=== PATIENT | male | born 1945 | race African-American/Black ===

== ENCOUNTER 2018-10-31 10:45 | Inpatient (IN) | payer BC, MEDICARE ==
[~2018-10-31] VITALS: Ht 180.3 cm; Wt 77.1 kg
[2018-10-31] MEDS ORDERED: SODIUM CHLORIDE 0.9% 1,000 ML IV ONE (11:49)
[2018-10-31] MEDS ORDERED: ONDANSETRON HCL 4MG/2ML INJ IV STA (11:49)
[2018-10-31] MEDS ORDERED: MORPHINE SULFATE 4 MG/ML CPJ (NOT FOR IM USE) IV STA (11:49)
[2018-10-31 12:52] LABS: BASOPHILS % 0.4 % (0.0-2.0); EOSINOPHILS % 0.2 % (0.0-5.0); HEMATOCRIT. 46.3 % (42.0-52.0); HEMOGLOBIN. 15.8 g/dL (14.0-18.0); LYMPHOCYTES % 11.5 % (20.0-50.0); MEAN CORPUSCULAR HEMOGLOBIN 33.4 pg (28.0-32.0); MEAN CORPUSCULAR VOLUME 98.2 fL (80.0-94.0); MEAN PLATELET VOLUME 7.6 fl (7.4-10.4); MONOCYTES % 9.1 % (2.0-8.0); NEUTROPHILS % 78.8 % (40.0-76.0); PLATELET 317 x1000/uL (130-400); RED BLOOD CELL COUNT 4.72 mill/uL (4.7-6.1); RED CELL DISTRIBUTION WIDTH 13.8 % (11.6-14.6)
[2018-10-31 13:00] LABS: PROTHROMBIN TIME 10.4 sec (9.6-11.0)
[2018-10-31 13:01] LABS: CHLORIDE 94 mEq/L (98-107)
[2018-10-31 14:32] LABS: CLARITY URINE CLEAR (CLEAR); COLOR URINE YELLOW (YELLOW); KETONES URINE NEGATIVE (NEGATIVE); LEUKOCYTE ESTERASE URINE NEGATIVE (NEGATIVE); NITRITE URINE NEGATIVE (NEGATIVE); OCCULT BLOOD URINE NEGATIVE (NEGATIVE); PROTEIN URINE TRACE (NEGATIVE); UROBILINOGEN URINE 0.2 E.U./dL (0.2-1.0)
[2018-10-31] MEDS ORDERED: ASPIRIN 325MG EC TABLET PO NR (15:00)
[2018-10-31] MEDS ORDERED: IOHEXOL-300 100 ML BOTTLE ONE (16:08)
[2018-10-31 17:16] VITALS: BP 154/91
[2018-10-31 17:35] VITALS: BP 154/91
[2018-10-31] MEDS ORDERED: LISI-604 PO (17:51)
[2018-10-31] MEDS ORDERED: MYCO500T PO (17:51)
[2018-10-31] MEDS ORDERED: FESO8TAB PO (17:51)
[2018-10-31] MEDS ORDERED: MEMA10TA2 PO (17:51)
[2018-10-31] MEDS ORDERED: UBID100T7 PO (17:51)
[2018-10-31] MEDS ORDERED: HYDR25TA PO (17:51)
[2018-10-31] MEDS ORDERED: MODA100T28 PO (17:51)
[2018-10-31] MEDS ORDERED: POTA-79 PO (17:51)
[2018-10-31] MEDS ORDERED: ALFU10TA9 PO (17:51)
[2018-10-31] MEDS ORDERED: AMLO5TAB88 PO (17:51)
[2018-10-31] MEDS ORDERED: METO-385 PO (17:51)
[2018-10-31] MEDS ORDERED: MAGNESIUM/ALUMINUM HYDROXIDE/SIMETHICONE 30ML UDC PO PRN (18:15)
[2018-10-31] MEDS ORDERED: DIPHENHYDRAMINE 50MG/ML VIAL IV PRN (18:15)
[2018-10-31] MEDS ORDERED: IPRATROPIUM/ALBUTEROL 0.5-3(2.5)MG/3ML NEB INH PRN (18:15)
[2018-10-31] MEDS ORDERED: HYDROCODONE/ACETAMINOPHEN 5/325MG TABLET PO PRN (18:15)
[2018-10-31] MEDS ORDERED: ACETAMINOPHEN 650MG/20.3ML UDC GT PRN (18:15)
[2018-10-31] MEDS ORDERED: CLONIDINE 0.1MG TABLET PO PRN (18:15)
[2018-10-31] MEDS ORDERED: GUAIFENESIN 200MG/10ML SUGAR FREE UDC PO PRN (18:15)
[2018-10-31] MEDS ORDERED: ACETAMINOPHEN 325MG TABLET PO PRN (18:15)
[2018-10-31] MEDS ORDERED: ACETAMINOPHEN 650MG SUPP PR PRN (18:15)
[2018-10-31] MEDS ORDERED: NA PHOS,M-B/NA PHOS,DI-BA ENEMA 118ML PR PRN (18:15)
[2018-10-31] MEDS ORDERED: ENOXAPARIN 40MG/0.4ML SYR SUBCUT SCH (18:30)
[2018-10-31 20:00] VITALS: BP 130/68
[2018-10-31] MEDS: MYCOPHENOLATE MOFETIL 500MG TABLET PO SCH (22:49)
[2018-10-31] MEDS: POTASSIUM CHLORIDE 20MEQ TABLET SR PO SCH (22:50)
[2018-10-31] MEDS: SODIUM CHLORIDE 0.9% INJ 3ML FLUSH IVF SCH (22:59)
[2018-11-01] VITALS: BP 129/88
[2018-11-01 01:16] LABS: CREATINE KINASE 181 IU/L (39-308)
[2018-11-01 01:17] LABS: CREATINE KINASE MB FRACTION 2.7 ng/mL (0.5-3.6)
[2018-11-01] MEDS ORDERED: ONDANSETRON HCL 4MG/2ML INJ IV PRN (02:15)
[2018-11-01] MEDS: DOCUSATE SODIUM 100MG CAPSULE PO PRN ×3 (03:15→11:06)
[2018-11-01 04:00] VITALS: BP 118/75
[2018-11-01] MEDS: SODIUM CHLORIDE 0.9% INJ 3ML FLUSH IVF SCH (06:13)
[2018-11-01 06:34] LABS: CHLORIDE 98 mEq/L (98-107)
[2018-11-01 06:38] LABS: BASOPHILS % 0.5 % (0.0-2.0); EOSINOPHILS % 0.2 % (0.0-5.0); HEMATOCRIT. 44.5 % (42.0-52.0); HEMOGLOBIN. 15.1 g/dL (14.0-18.0); LYMPHOCYTES % 17.9 % (20.0-50.0); MEAN CORPUSCULAR HEMOGLOBIN 33.5 pg (28.0-32.0); MEAN CORPUSCULAR VOLUME 98.6 fL (80.0-94.0); MEAN PLATELET VOLUME 7.7 fl (7.4-10.4); MONOCYTES % 11.1 % (2.0-8.0); NEUTROPHILS % 70.3 % (40.0-76.0); PLATELET 302 x1000/uL (130-400); RED BLOOD CELL COUNT 4.51 mill/uL (4.7-6.1); RED CELL DISTRIBUTION WIDTH 13.4 % (11.6-14.6)
[2018-11-01 06:47] LABS: HDL CHOLESTEROL 64 mg/dL (40-59)
[2018-11-01 06:48] LABS: CREATINE KINASE 165 IU/L (39-308)
[2018-11-01 06:51] LABS: LDL CHOLESTEROL 128 mg/dL (5-100)
[2018-11-01 06:55] LABS: CREATINE KINASE MB FRACTION 2.2 ng/mL (0.5-3.6)
[2018-11-01 08:00] VITALS: BP 109/71
[2018-11-01 08:35] LABS: *AMPHETAMINES SCREEN URINE NEGATIVE (NEGATIVE); *BARBITURATES SCREEN URINE NEGATIVE (NEGATIVE); *BENZODIAZEPINES SCREEN URINE NEGATIVE (NEGATIVE)
[2018-11-01 08:36] LABS: *COCAINE SCREEN URINE NEGATIVE (NEGATIVE); METHADONE URINE SCREEN NEGATIVE (NEGATIVE); OPIATES URINE SCREEN PRESUMTIVE POSITIVE (NEGATIVE)
[2018-11-01 08:37] LABS: CANNABINOID URINE SCREEN PRESUMTIVE POSITIVE (NEGATIVE); PHENCYCLIDINE URINE SCREEN NEGATIVE (NEGATIVE)
[2018-11-01] MEDS: MYCOPHENOLATE MOFETIL 500MG TABLET PO SCH (08:52)
[2018-11-01] MEDS: POTASSIUM CHLORIDE 20MEQ TABLET SR PO SCH (08:53)
[2018-11-01] MEDS ORDERED: AMLODIPINE 5MG TABLET PO SCH (09:00)
[2018-11-01] MEDS ORDERED: UBIDECARENONE/VITAMIN E 50MG PO SCH (09:00)
[2018-11-01] MEDS ORDERED: HYDROCHLOROTHIAZIDE 25MG TABLET PO SCH (09:00)
[2018-11-01] MEDS ORDERED: LISINOPRIL 20MG TABLET PO SCH (09:00)
[2018-11-01] MEDS ORDERED: POTASSIUM CHLORIDE 20MEQ TABLET SR PO NR (11:00)
[2018-11-01 11:30] VITALS: BP 111/61
[2018-11-01] MEDS ORDERED: POTASSIUM CHLORIDE 20MEQ TABLET SR PO SCH (17:00)
== END 2018-11-01 11:43 | disposition left against medical advice (07) | DRG 313 ==
LOC: ER 10:45 → 8WST 14:53 → EDBEDREQ 15:06 → ENRESERV 16:15 → 8WST 11-01 00:31
PROVIDERS: ADMIT Family Medicine; ATTEND Family Medicine
DX: R07.9 Chest pain, unspecified (principal); G70.00 Myasthenia gravis without (acute) exacerbation; I10 Essential (primary) hypertension; Z53.21 Procedure and treatment not carried out due to patient leaving prior to being seen by health care provider; Z79.899 Other long term (current) drug therapy; Z85.46 Personal history of malignant neoplasm of prostate; Z92.3 Personal history of irradiation
CPT/HCPCS: 36415; 71045; 74177; 80061; 80305; 82550; 82553; 83605; 83880; 84484; 93005; 96361; 96374; 96375; 99285; J2270; J2405; J7030; J7517; Q9967